=== PATIENT | male | born 1965 | race Caucasian/White ===

== ENCOUNTER → 2022-04-30 | Day surgery (SDC) | payer BC, OTHER ==
[~2022-04-30] VITALS: Ht 172.7 cm; Wt 92.5 kg
[~2022-04-30] MED LIST: ADENOSINE 3 MG/ML 2 ML VIAL IVP ONE; ADENOSINE 3 MG/ML 2 ML VIAL ONE; ASPIRIN 81 MG CHEWABLE TABLET PO ONE; ATORVASTATIN CALCIUM 40 MG TABLET PO ONE; EPTIFIBATIDE 2 MG/ML 10 ML VIAL IVP ONE; EPTIFIBATIDE 75 MG/ISO-OSM 100 ML IV ONE; FentaNYL CITRATE PF 100 MCG/2 ML VIAL IVP ONE; HEPARIN SODIUM 1000 UNITS/NS 1,000 ML IARTER ONE; HEPARIN SODIUM 1000 UNITS/NS 500 ML ONE; HEPARIN SODIUM,PORCINE 5,000 UNITS/ML VIAL IVP ONE; INSULIN REGULAR, HUMAN 100 UNITS/ML IVP ONE; IOHEXOL 300 MG/ML 150 ML VIAL ICOR ONE; IOHEXOL 300 MG/ML 50 ML VIAL IARTER ONE; IOHEXOL 300 MG/ML 50 ML VIAL ONE; IOHEXOL 350 MG/ML 75 ML VIAL ONE; LIDOCAINE 1% 30 ML/SOD BICARB 8.4% 4 ML SQ ONE; MIDAZOLAM HCL 2 MG/2 ML VIAL IVP ONE; NOREPINEPHRINE 8 MG/D5%-WATER 250 ML IV PRN; PHENYLEPHRINE HCL 10 MG/ML 5 ML VIAL IVP ONE; PHENYLEPHRINE HCL IN 0.9% NACL 400 MCG/10 ML SYRINGE IVP ONE; SODIUM CHLORIDE 0.9% 1,000 ML IV ONE; SODIUM CHLORIDE 0.9% 100 ML ONE; TICAGRELOR 90 MG TABLET ONE; TICAGRELOR 90 MG TABLET PO ONE
[2022-04-30 11:05] LABS: BASOPHILS % (AUTO) 0.2 % (0.0-2.0); EOSINOPHILS % (AUTO) 0 % (1.0-6.0); HEMATOCRIT 40.7 % (41-53); HEMOGLOBIN 14.2 g/dL (13.5-17.5); LYMPHOCYTES # (AUTO) 1.5 K/uL (1.0-4.8); LYMPHOCYTES % (AUTO) 7.9 % (22.0-44.0); MEAN CORPUSCULAR HEMOGLOBIN 28.9 pg (26.0-34.0); MEAN CORPUSCULAR VOLUME 83 fL (80-100); MONOCYTES # (AUTO) 2.3 K/uL (0.1-1.0); MONOCYTES % (AUTO) 12.3 % (2.0-9.0); NEUTROPHILS # (AUTO) 14.7 K/uL (1.8-7.7); NEUTROPHILS % (AUTO) 79.6 % (40.0-70.0); PLATELET COUNT (AUTO) 275 K/uL (150-450); RED BLOOD CELL COUNT(AUTO) 4.91 MIL/uL (4.50-5.90); RED CELL DISTRIBUTION WIDTH 12.9 % (11.5-14.5)
[2022-04-30 11:17] LABS: INR 1.1 (0.9-1.1); PROTHROMBIN TIME 11.7 SEC (9.4-11.6)
[2022-04-30 11:23] LABS: ALANINE AMINOTRANSFERASE 81 U/L (12-78); ALBUMIN 3.3 g/dL (3.4-5.0); ALKALINE PHOSPHATASE 78 U/L (46-116); ANION GAP 12 mmol/L (8-16); ASPARTATE AMINOTRANSFERASE 316 U/L (15-37); BILIRUBIN,TOTAL 2.5 mg/dL (0.1-1.0); CALCIUM, TOTAL 9.7 mg/dL (8.8-10.5); CARBON DIOXIDE 24 mmol/L (22-29); CHLORIDE 99 mmol/L (98-107); CREATININE 0.78 mg/dL (0.60-1.30); GLOMERULAR FILTR. RATE CALC > 60 mL/min (>60); POTASSIUM 4.3 mmol/L (3.5-5.1); SODIUM SERUM 135 mmol/L (136-145); TOTAL PROTEIN, SERUM 7.6 g/dL (6.4-8.2); UREA NITROGEN, BLOOD 14 mg/dL (7-18)
[2022-04-30 11:24] LABS: GLUCOSE,RANDOM 412 mg/dL (70-110)
[2022-04-30 11:49] LABS: APPEARANCE,URINE CLEAR (CLEAR); BILIRUBIN,URINE NEGATIVE (NEGATIVE); GLUCOSE, URINE (UA) >=1000 mg/dL (NEGATIVE); KETONES,URINE 80-100 mg/dL (NEGATIVE); LEUKOCYTE ESTERASE ,URINE NEGATIVE (NEGATIVE); NITRATE,URINE NEGATIVE (NEGATIVE); OCCULT BLOOD,URINE TRACE (NEGATIVE); PH,URINE 5.5 (5.0-8.0); PROTEIN,URINE TRACE mg/dL (NEGATIVE); UROBILINOGEN,URINE <=1.0 mg/dL (<=1.0)
[2022-04-30 12:01] LABS: AMPHET/METH SCREEN,URINE NEGATIVE (NEGATIVE); BARBITURATE SCREEN, URINE NEGATIVE (NEGATIVE); BENZODIAZEPINES SCREEN,URINE NEGATIVE (NEGATIVE); CANNABINOID SCREEN,URINE NEGATIVE (NEGATIVE); COCAINE SCREEN,URINE NEGATIVE (NEGATIVE); METHADONE SCREEN, URINE NEGATIVE (NEGATIVE); OPIATE SCREEN,URINE NEGATIVE (NEGATIVE)
[2022-04-30 12:02] LABS: PHENCYCLIDINE SCREEN,URINE NEGATIVE (NEGATIVE)
[2022-04-30 12:05] LABS: BACTERIA,URINE None Seen /HPF (None Seen); RBC,URINE None Seen /HPF (0-2); SQUAMOUS EPITHELIAL CELL,UR Few /LPF (None Seen); WBC,URINE None Seen /HPF (0-5)
[2022-04-30] MEDS: NOREPINEPHRINE BITARTRATE 16 MG in DEXTROSE 5%-WATER 234 ML IV PRN ×2 (12:14→12:25)
[2022-04-30 12:25] VITALS: BP 146/92
[2022-04-30 12:36] LABS: B-TYPE NATRIURETIC PEPTIDE 700 pg/mL (0-100)
== END | disposition still patient (30) ==
LOC: EMS 10:50 → SDS 10:50 → EMS 13:21 → EDSTATUS 16:06 → SDS 16:10
PROVIDERS: ATTEND Emergency Medicine
DX: I25.10 Atherosclerotic heart disease of native coronary artery without angina pectoris (principal); I25.82 Chronic total occlusion of coronary artery; Z79.01 Long term (current) use of anticoagulants; Z79.899 Other long term (current) drug therapy; I65.23 Occlusion and stenosis of bilateral carotid arteries; I10 Essential (primary) hypertension; I69.354 Hemiplegia and hemiparesis following cerebral infarction affecting left non-dominant side; E11.9 Type 2 diabetes mellitus without complications; Z79.82 Long term (current) use of aspirin; Z98.890 Other specified postprocedural states
CPT/HCPCS: 36415; 70450; 70496; 70498; 71045; 80053; 80307; 81001; 83880; 84484; 85025; 85610; 85730; 92973; 93005; 93458; 99152; 99153; 99291; C1874; C9607; J0153; J1327 ×2; J1644; J7050; Q9967 ×2; 51702; 92920; 92928; J2370